=== PATIENT | female | born 1970 | race Caucasian/White ===

== ENCOUNTER 2020-04-20 09:49 | Outpatient (CLI) | payer BC, SELFPAY ==
[2020-04-20 10:28] LABS: Basophils Absolute Auto 0.1 K/mm3 (0.0-0.1); Basophils Percent Auto 0.7 % (0.2-1.2); Eosinophils Percent Auto 0.6 % (0-4.4); Hematocrit 43.5 % (37.0-47.0); Hemoglobin 14.4 g/dL (12.0-15.0); Immature Granulocyte Absolute 0.03 K/mm3 (0.00-0.031); Immature Granulocyte Percent A 0.4 % (0-0.5); Lymphocytes Absolute Auto 2.25 K/mm3 (0.9-3.2); Lymphocytes Percent Auto 33.3 % (18.3-44.2); Mean Corpuscular HGB Conc 33.1 g/dl (32-36); Mean Corpuscular Hemoglobin 29.4 pg (26-34); Mean Corpuscular Volume 88.8 fl (80-100); Mean Platelet Volume 9.2 fl (7.4-10.4); Monocytes Absolute Auto 0.6 K/mm3 (0.1-0.6); Monocytes Percent Auto 9.5 % (2.6-8.5); Neutrophils Absolute Auto 3.8 K/mm3 (1.3-6.7); Neutrophils Percent Auto 55.5 % (45.5-73.1); Platelet Count Result 376 k/mm3 (150-375); Red Cell Distribution Width 13.7 % (11.5-14.5); White Blood Count 6.8 K/mm3 (4.5-10.0)
[2020-04-20 10:39] LABS: Alanine Aminotransferase 33 U/L (4-35); Albumin Level 4.6 g/dL (3.5-5.1); Alkaline Phosphatase 107 U/L (38-126); Anion Gap 9 mmol/L (8-16); Aspartate Amino Transferase 33 U/L (14-36); Bilirubin,Total 0.5 mg/dL (0.2-1.3); Blood Urea Nitrogen 19 mg/dL (7-17); Calcium 9.7 mg/dL (8.4-10.2); Carbon Dioxide 26 mmol/L (22-30); Chloride 105 mmol/L (98-107); Cholesterol 208 mg/dL (0-200); Estimated Glomerular Filt Rate > 60; Glucose 86 mg/dL (65-105); HDL Direct 60 mg/dL; Potassium 4.1 mmol/L (3.4-5.0); Sodium 140 mmol/L (137-145); Triglycerides 88 mg/dL (<150)
[2020-04-20 10:50] LABS: LDL Cholesterol Direct 109 mg/dL
== END 2020-04-20 09:50 | disposition home or self-care (01) ==
PROVIDERS: PCP Physician Assistant; Visit Provider Physician Assistant
DX: Z00.00 Encounter for general adult medical examination without abnormal findings (principal)
CPT/HCPCS: 36415; 80053; 80061; 84439; 84443; 85025

== ENCOUNTER 2020-05-10 17:57 | Emergency (ER) | payer BC, SELFPAY ==
--- NOTE | 2020-05-10 18:04 | ED.URI ---
HPI - URI/Sore Throat General Chief Complaint: Upper Respiratory Infection Stated Complaint: Sore Throat Time Seen by Provider: 05/10/20 18:11 Source: patient and RN notes reviewed Mode of arrival: ambulatory Limitations: no limitations History of Present Illness HPI Narrative: 50-year-old female presents with concern for scratchy throat, rhinorrhea, nasal congestion, reports diarrhea. Reports diarrhea for 2 days, sore throat started today. She denies cough, shortness of breath, body aches, chills, sweats, headache, nausea, vomiting MD elicited complaint: sore throat Related Data Home Medications Medication Instructions Recorded Confirmed sertraline 50 mg PO DAILY 05/10/20 05/10/20 Allergies Allergy/AdvReac Type Severity Reaction Status Date / Time Penicillins Allergy Unknown Unknown Verified 05/10/20 18:27 Review of Systems Review of Systems: Narrative: CONSTITUTIONAL: Denies malaise, chills, sweats, or fever. EYES: Denies visual changes, redness, or discharge. ENT: Reports rhinorrhea, congestion, sore throat. Denies sinus pain, otalgia CARDIOVASCULAR: Denies chest pain, palpitations, or edema. RESPIRATORY: Denies cough or dyspnea. GASTROINTESTINAL: Denies abdominal pain, nausea, vomiting. Reports diarrhea SKIN: Denies rash or itching. MUSCULOSKELETAL: Denies myalgia. NEUROLOGIC: Denies headache. All systems reviewed & are unremarkable except as noted in HPI and below PMFSH Family History Family History (Updated 05/16/17 @ 13:48 by DOCTOR UNKNOWN) Father Family history of heart disease in male family member before age 55 Family history of cardiovascular disease, Onset Age: 74 Mother Cerebrovascular accident, Onset Age: 73 Sibling Diabetes mellitus Other Family history of lung cancer Social History Social History Smoking status: Never smoker Alcohol intake: never Gender identity (if verbalized by the patient): Female Comments At time of signature, agree with nursing past medical, surgical, social and family history. There is no relevant family history pertinent to the presenting complaint Exam Narrative: Exam Narrative: GENERAL: Well-appearing, well-nourished, and in no acute distress. HEAD: Normocephalic EYES: PERRLA, conjunctivae clear ENT: Nares clear, turbinates edematous and erythematous, clear discharge. Mucous membranes moist. TM pearly dyson with dull light reflex bilaterally; no tragal tenderness. Oropharynx mildly erythematous without lesions. Tonsils mildly enlarged and without exudate, no drooling, no hoarseness, no trismus, uvula midline. NECK: Supple. No lymphadenopathy CHEST: Clear to auscultation, breath sounds equal. No wheezing, rhonchi, rales, or stridor. No respiratory distress, speaks in full sentences. HEART: Regular rate and rhythm. No murmur heard. SKIN: Warm, dry, no rash. NEURO: Alert and oriented x3. PSYCH: Normal mood and affect Course Course Emergency Course: Patient is aware of diagnosis, understands and agrees to treatment plan. Anticipatory guidance given. Patient agrees to follow-up as directed and is aware of reasons to seek care at the emergency department. Portions of this record may have been created with voice recognition software Vital Signs Vital signs: Vital Signs Temperature 98.0 F 05/10/20 18:07 Pulse Rate 78 05/10/20 18:07 Respiratory Rate 16 05/10/20 18:07 Blood Pressure 142/88 H 05/10/20 18:07 Pulse Oximetry 99 05/10/20 18:07 Temperature 98.0 F 05/10/20 18:07 Pulse Rate 78 05/10/20 18:07 Respiratory Rate 16 05/10/20 18:07 Blood Pressure 142/88 H 05/10/20 18:07 Pulse Oximetry 99 05/10/20 18:07 Reviewed. Patient has been instructed to follow up with her primary care provider within the next week regarding her elevated blood pressure today. MDM - URI/Sore Throat MDM Narrative Medical decision making narrative: Differential diagnosis considered: [place] virus, strep pharyngitis, allergic rhinitis, up
[2020-05-10 18:07] VITALS: BP 142/88; PULSE 78; RESP 16; TEMP 36.7; O2SAT 99
== END 2020-05-10 18:35 | disposition home or self-care (01) ==
PROVIDERS: Emergency Provider Nurse Practitioner; PCP Physician Assistant
DX: J02.0 Streptococcal pharyngitis (principal); F41.9 Anxiety disorder, unspecified
CPT/HCPCS: 87880; 99213; G0463

== ENCOUNTER 2020-09-23 11:45 | Emergency (ER) | payer BC, SELFPAY ==
--- NOTE | ~2020-09-23 | XR_ITS ---
EXAMINATION: XR chest 2V 09/23/2020 13:38 INDICATION: Shortness of breath PROCEDURE: 2 view chest COMPARISON: 09/12/2011 FINDINGS: The lungs are clear. The cardiomediastinal silhouette is within normal limits. There are no pleural effusions. There is no pneumothorax suspected. IMPRESSION: 1: NO ACUTE CARDIOPULMONARY DISEASE. Reviewed, dictated and finalized at location B.
[2020-09-23 12:01] VITALS: BP 139/89; PULSE 94; RESP 20; TEMP 36.3; O2SAT 99
--- NOTE | 2020-09-23 13:27 | ECG_ITS ---
Measurements Intervals [place] Rate: 93 P: -11 LA: 137 QRS: -5 QRSD: 80 T: 33 QT: 327 QTc: 409 Interpretive Statements SINUS RHYTHM DELAYED PRECORDIAL R/S TRANSITION BORDERLINE ECG Electronically Signed On 09-23-2020 14:42:56 CDT by Rbo Jarvis D.O.
--- NOTE | 2020-09-23 13:35 | PC.NURSE ---
Pt to XY via wheelchair at this time.
--- NOTE | 2020-09-23 13:36 | PC.NURSE ---
Pt to XRAY via w/c.
[2020-09-23 13:44] LABS: Basophils Absolute Auto 0.1 K/mm3 (0.0-0.1); Basophils Percent Auto 0.6 % (0.2-1.2); Eosinophils Percent Auto 0.3 % (0-4.4); Hematocrit 46.5 % (37.0-47.0); Hemoglobin 15.4 g/dL (12.0-15.0); Immature Granulocyte Absolute 0.03 K/mm3 (0.00-0.031); Immature Granulocyte Percent A 0.3 % (0-0.5); Lymphocytes Absolute Auto 2.02 K/mm3 (0.9-3.2); Lymphocytes Percent Auto 23.1 % (18.3-44.2); Mean Corpuscular HGB Conc 33.1 g/dl (32-36); Mean Corpuscular Hemoglobin 30.6 pg (26-34); Mean Corpuscular Volume 92.4 fl (80-100); Mean Platelet Volume 9.1 fl (7.4-10.4); Monocytes Absolute Auto 0.5 K/mm3 (0.1-0.6); Monocytes Percent Auto 6.1 % (2.6-8.5); Neutrophils Absolute Auto 6.1 K/mm3 (1.3-6.7); Neutrophils Percent Auto 69.6 % (45.5-73.1); Platelet Count Result 394 k/mm3 (150-375); Red Blood Count 5.03 M/mm3 (4.2-5.4); Red Cell Distribution Width 13.3 % (11.5-14.5); White Blood Count 8.8 K/mm3 (4.5-10.0)
--- NOTE | 2020-09-23 13:52 | ED.SOB ---
HPI - SOB/Dyspnea General Chief Complaint: Anxiety Stated Complaint: shortness of breath Time Seen by Provider: 09/23/20 12:47 Source: patient Mode of arrival: ambulatory Limitations: no limitations History of Present Illness HPI Narrative: This is a 50 year old female that presents to the ER for shortness of breath x 3 days. No known associated symptoms. Feels like its hard for her to catch her breath. Denies fever, cough, chest pain, or lower extremity edema. Related Data Home Medications Medication Instructions Recorded Confirmed sertraline 50 mg PO DAILY 05/10/20 05/10/20 Allergies Allergy/AdvReac Type Severity Reaction Status Date / Time Penicillins Allergy Unknown Unknown Verified 09/23/20 12:18 Review of Systems Review of Systems: Narrative: CONSTITUTIONAL: Denies fever ENT: Denies congestion CARDIOVASCULAR: Denies chest pain, or edema. RESPIRATORY: Reports dyspnea. Denies cough All systems reviewed & are unremarkable except as noted in HPI and below PMFSH Past Medical History Medical History (Updated 09/23/20 @ 15:01 by Davida Rubio PA-C) History of anxiety Family History Family History (Updated 05/16/17 @ 13:48 by DOCTOR UNKNOWN) Father Family history of heart disease in male family member before age 55 Family history of cardiovascular disease, Onset Age: 74 Mother Cerebrovascular accident, Onset Age: 73 Sibling Diabetes mellitus Other Family history of lung cancer Social History Social History Smoking status: Never smoker Alcohol intake: never Substance use type: does not use Gender identity (if verbalized by the patient): Female Exam Narrative: Exam Narrative: GENERAL: Well-appearing, well-nourished, and in no acute distress. HEAD: Normocephalic, atraumatic. EYES: EOMI. ENT: Nares clear, no rhinorrhea or epistaxis. Mucous membranes moist. Oropharynx without tonsillar hypertrophy exudate or other lesions. Bilateral TMs pearly dyson non-bulging NECK: Supple. No adenopathy or masses. CHEST: Clear to auscultation. No respiratory distress. No wheezes rales or rhonchi HEART: Regular rate and rhythm. No murmur heard. Normal peripheral pulses. EXTREMITIES: Normal range of motion. No edema. SKIN: Warm, dry, no rash. NEURO: No focal deficits. Alert and oriented x3. PSYCH: Normal mood and affect Course Vital Signs Vital signs: Vital Signs Temperature 97.4 F L 09/23/20 12:01 Pulse Rate 94 09/23/20 12:01 Respiratory Rate 20 09/23/20 12:01 Blood Pressure 139/89 09/23/20 12:01 Pulse Oximetry 99 09/23/20 12:01 Temperature 97.4 F L 09/23/20 12:01 Pulse Rate 94 09/23/20 12:01 Respiratory Rate 20 09/23/20 12:01 Blood Pressure 139/89 09/23/20 12:01 Pulse Oximetry 99 09/23/20 12:01 MDM - SOB/Dyspnea MDM Narrative Medical decision making narrative: Patient presents the emergency department for shortness of breath over the last couple of days. She is afebrile and nontoxic-appearing. Oxygen saturation is normal on room air. CBC and metabolic panel without concerning findings. Chest x-ray is clear. EKG is without concerning changes. She denies any chest pain. Patient left after being seen by me and before getting her results or having any further evaluation or treatment Lab Data Attestation: I reviewed the patient's lab results. Result diagrams: 09/23/20 13:34 09/23/20 13:34 Labs: Lab Results 09/23/20 09/23/20 Range/Units 13:34 13:34 WBC 8.8 (4.5-10.0) K/mm3 RBC 5.03 (4.2-5.4) M/mm3 Hgb 15.4 H (12.0-15.0) g/dL Hct 46.5 (37.0-47.0) % MCV 92.4 (80-100) fl MCH 30.6 (26-34) pg MCHC 33.1 (32-36) g/dl RDW 13.3 (11.5-14.5) % Plt Count 394 H (150-375) k/mm3 MPV 9.1 (7.4-10.4) fl Immature Gran % (Auto) 0.3 (0-0.5) % Neut % (Auto) 69.6 (45.5-73.1) % Lymph % (Auto) 23.1 (18.3-44.2) % [place] % (Auto) 6.1 (2.6-8.5) % Eos % (Auto) 0.3 (0-4.4) % Baso
[2020-09-23 13:54] LABS: Anion Gap 9 mmol/L (8-16); Blood Urea Nitrogen 21 mg/dL (7-17); Calcium 10.1 mg/dL (8.4-10.2); Carbon Dioxide 24 mmol/L (22-30); Chloride 106 mmol/L (98-107); Estimated CRCL calculation 100 ml/min; Estimated Glomerular Filt Rate > 60; Glucose 99 mg/dL (65-105); Sodium 139 mmol/L (137-145)
--- NOTE | 2020-09-23 14:33 | PC.NURSE ---
Pt came to nurse desk w/ and states I will come back later for all my results. We are hungry and we've been in that room a long time. Ruby RN - pts primary nurse, states The results are back, lets go to your room and I will ask Davida the provider for an update. Pt states No, I am just gonna leave cause we are hungry and gonna go get [employer] and I dont wanna wait any longer. Pt ambulated out in no obvious distress w/ steady gait.
== END 2020-09-23 14:37 | disposition left against medical advice (07) ==
PROVIDERS: Physician Assistant; Emergency Provider Emergency Medicine; PCP Physician Assistant
DX: R06.00 Dyspnea, unspecified (principal); F41.9 Anxiety disorder, unspecified; R94.31 Abnormal electrocardiogram [ECG] [EKG]
CPT/HCPCS: 36415; 71046; 80048; 85025; 93005; 99283

== ENCOUNTER 2021-05-12 12:05 | Emergency (ER) | payer BC, SELFPAY ==
[2021-05-12 12:22] VITALS: BP 140/89; PULSE 89; RESP 20; TEMP 38.1; O2SAT 97
--- NOTE | 2021-05-12 12:22 | ED.URI ---
HPI - URI/Sore Throat General Chief Complaint: Upper Respiratory Infection Stated Complaint: Cough,Congestion Time Seen by Provider: 05/12/21 12:23 Source: patient and RN notes reviewed Mode of arrival: ambulatory Limitations: no limitations History of Present Illness HPI Narrative: Idalia is a 51-year-old female patient who ambulated into the [facility] today. Patient starts that yesterday on 05/11/2020 when she developed cough scratchy throat, patient states she had 100.6 temp at work today. They have a Covid test pending on her currently MD elicited complaint: cough and sore throat Related Data Home Medications Medication Instructions Recorded Confirmed sertraline 50 mg PO DAILY 05/10/20 05/12/21 Allergies Allergy/AdvReac Type Severity Reaction Status Date / Time Penicillins Allergy Unknown Unknown Verified 09/23/20 12:18 Review of Systems Review of Systems: CONSTITUTIONAL: Denies body aches, fever, chills, or sweats. EYES: Denies visual changes, redness, or discharge. ENT: Denies rhinorrhea,+ congestion,+ sore throat, or otalgia. CARDIOVASCULAR: Denies chest pain, palpitations, or edema. RESPIRATORY: +cough denies dyspnea. GASTROINTESTINAL: Denies abdominal pain, nausea, vomiting, or diarrhea. GENITOURINARY: Denies dysuria or hematuria. SKIN: Denies rash, itching, or wounds. MUSCULOSKELETAL: Denies back pain, joint pain, or myalgia. NEUROLOGIC: Denies headache, numbness, tingling, or weakness. PSYCH: Denies depression or anxiety. All systems reviewed & are unremarkable except as noted in HPI and below PMFSH Past Medical History Medical History History of anxiety Family History Family History Father Family history of heart disease in male family member before age 55 Family history of cardiovascular disease, Onset Age: 74 Mother Cerebrovascular accident, Onset Age: 73 Sibling Diabetes mellitus Other Family history of lung cancer Social History Social History Smoking status: Never smoker Alcohol intake: never Substance use type: does not use Gender identity (if verbalized by the patient): Female Comments At time of signature, I have reviewed and agree with nursing past medical, surgical, social and family history unless otherwise noted. Please see nursing chart for further information. There is no relevant family history pertinent to the presenting complaint Exam Narrative: GENERAL: Well-appearing, well-nourished, and in no acute distress. HEAD: Normocephalic, atraumatic. EYES: EOMI. No redness or drainage. Conjunctivae normal. ENT: Mucous membranes pink and moist. Nasal passages are erythematous with clear rhinorrhea. Bilateral tympanic membranes are dull with minimal fluid. No erythema. Posterior pharynx is erythemic with mild edema and no exudate. Moderate amount of clear postnasal drainage is noted. Uvula midline. NECK: Normal AROM. Supple. No lymphadenopathy. CHEST: No respiratory distress. Clear to auscultation. MUSCULOSKELETAL: No bony tenderness. EXTREMITIES: Normal range of motion. No edema. SKIN: Warm, dry, no rash. Capillary refill normal. Normal skin turgor. NEURO: No focal deficits. Alert and oriented x3. Gait steady. PSYCH: Normal affect. No signs of depression or anxiety. Course Vital Signs Vital signs: Vital Signs Temperature 38.1 C H 05/12/21 12:22 Pulse Rate 89 05/12/21 12:22 Respiratory Rate 20 05/12/21 12:22 Blood Pressure 140/89 05/12/21 12:22 Pulse Oximetry 97 05/12/21 12:22 Temperature 38.1 C H 05/12/21 12:22 Pulse Rate 89 05/12/21 12:22 Respiratory Rate 20 05/12/21 12:22 Blood Pressure 140/89 05/12/21 12:22 Pulse Oximetry 97 05/12/21 12:22 Reviewed. Pt has been instructed to follow up with her PCP regarding her elevated blood pressure today.
== END 2021-05-12 12:55 | disposition home or self-care (01) ==
PROVIDERS: Emergency Provider Nurse Practitioner Family; PCP Physician Assistant
DX: J06.9 Acute upper respiratory infection, unspecified (principal); F41.9 Anxiety disorder, unspecified
CPT/HCPCS: 87081; 87804; 87880; 99213; G0463

== ENCOUNTER 2022-04-11 14:00 | Emergency (ER) | payer BC, SELFPAY ==
[2022-04-11 14:09] VITALS: BP 147/82; PULSE 74; RESP 18; TEMP 36.4; O2SAT 99
--- NOTE | 2022-04-11 14:40 | ED.LOWEXIN ---
HPI - Extremity Injury (Lower) General Chief Complaint: Extremity Injury, Lower Stated Complaint: Lt Foot and Ankle Pain Time Seen by Provider: 04/11/22 14:28 Source: patient Mode of arrival: ambulatory Limitations: no limitations History of Present Illness HPI Narrative: Patient presents today complaining of left ankle and foot pain and swelling. States symptoms were present when she woke up this morning. Denies any injury or trauma. Denies any numbness or tingling. States pain in her foot is primarily on the bottom of her foot and is only present when she weight bears. She is pain-free at rest, but her pain increases to 8/10 with weight-bearing. She has tried no [id number] treatment prior to arrival. Denies pain in her calf. Related Data Allergies Allergy/AdvReac Type Severity Reaction Status Date / Time Penicillins Allergy Unknown Unknown Verified 04/11/22 14:23 Review of Systems Review of Systems: CONSTITUTIONAL: Denies body aches, fever, chills, or sweats. EYES: Denies visual changes, redness, or discharge. ENT: Denies rhinorrhea, congestion, sore throat, or otalgia. CARDIOVASCULAR: Denies chest pain, palpitations, or edema. RESPIRATORY: Denies cough or dyspnea. GASTROINTESTINAL: Denies abdominal pain, nausea, vomiting, or diarrhea. GENITOURINARY: Denies dysuria or hematuria. SKIN: Denies rash, itching, or wounds. MUSCULOSKELETAL: Denies back pain, or myalgia.+ left ankle and foot pain and swelling NEUROLOGIC: Denies headache, numbness, tingling, or weakness. PSYCH: Denies depression or anxiety. [facility] Past Medical History Medical History History of anxiety Family History Family History Father Family history of heart disease in male family member before age 55 Family history of cardiovascular disease, Onset Age: 74 Mother Cerebrovascular accident, Onset Age: 73 Sibling Diabetes mellitus Other Family history of lung cancer Social History Social History Smoking status: Never smoker Alcohol intake: never Substance use type: does not use Gender identity (if verbalized by the patient): Female Comments At time of signature, I have reviewed and agree with nursing past medical, surgical, social and family history unless otherwise noted. Please see nursing chart for further information. There is no relevant family history pertinent to the presenting complaint Exam Narrative: GENERAL: Well-appearing, well-nourished, and in no acute distress. HEAD: Normocephalic, atraumatic. EYES: EOMI. No redness or drainage. Conjunctivae normal. ENT: Mucous membranes pink and moist. NECK: Normal AROM. CHEST: No respiratory distress. EXTREMITIES: Left foot and ankle: Patient has scant edema to the lateral ankle and dorsal surface of the foot. The ankle and dorsal surface of the foot are nontender. Patient does have tenderness to the plantar aspect of the foot at the arch and heel, most evident when the foot is in the hyperflexed position. Foot and ankle are normal color. Distal sensation intact in all 5 toes. Capillary refill normal. Pedal pulses normal. Foot +pulses equal and strong bilaterally. Calf is nontender. Negative Homans SKIN: Warm, dry, no rash. Capillary refill normal. Normal skin turgor. NEURO: No focal deficits. Alert and oriented x3. Gait steady. PSYCH: Normal affect. No signs of depression or anxiety. Course Course Level of Care: [facility] Visit Vital Signs Vital signs: Vital Signs Temperature 97.5 F L 04/11/22 14:09 Pulse Rate 74 04/11/22 14:09 Respiratory Rate 18 04/11/22 14:09 Blood Pressure 147/82 H 04/11/22 14:09 Pulse Oximetry 99 04/11/22 14:09 Oxygen Delivery Room Air 04/11/22 14:09 Temperature 97.5 F L 04/11/22 14:09 Pulse Rate 74 04/11/22 14:09 R
== END 2022-04-11 14:48 | disposition home or self-care (01) ==
PROVIDERS: Emergency Provider Nurse Practitioner
DX: M72.2 Plantar fascial fibromatosis (principal)
CPT/HCPCS: 99213; G0463